=== PATIENT | female | born 1940 | race Caucasian/White ===

== ENCOUNTER 2017-03-02 10:40 | Emergency (ER) | payer OTHER ==
[2017-03-02 12:30] LABS: CALCIUM 9.2 mg/dL (8.5-10.1); CARBON DIOXIDE 30.4 mmol/L (21-32); CHLORIDE SERUM 108 mmol/L (98-107); CREATININE SERUM 0.9 mg/dL (0.6-1.0); GLUCOSE SERUM 113 mg/dL (74-106); POTASSIUM SERUM 4.6 mmol/L (3.5-5.1); SODIUM SERUM 145 mmol/L (136-145)
[2017-03-02 16:49] VITALS: BP 156/88
== END 2017-03-02 16:41 | disposition home or self-care (01) ==
LOC: ED 10:40
PROVIDERS: Emergency Medicine
DX: T78.3XXA Angioneurotic edema, initial encounter (principal); I10 Essential (primary) hypertension; R73.03 Prediabetes; E78.00 Pure hypercholesterolemia, unspecified; Z90.49 Acquired absence of other specified parts of digestive tract; Z87.820 Personal history of traumatic brain injury; Z79.899 Other long term (current) drug therapy
CPT/HCPCS: J2930; Q0163

== ENCOUNTER 2017-08-09 18:03 | Emergency (ER) | payer OTHER ==
[~2017-08-09] VITALS: Ht 152.4 cm; Wt 81.6 kg
[2017-08-09 18:47] VITALS: Ht 152.4 cm; Wt 81.6 kg
[2017-08-09 23:08] VITALS: BP 157/93
== END 2017-08-09 23:08 | disposition home or self-care (01) ==
LOC: ED 18:03
DX: S43.014A Anterior dislocation of right humerus, initial encounter (principal); I10 Essential (primary) hypertension; E11.9 Type 2 diabetes mellitus without complications; W19.XXXA Unspecified fall, initial encounter; Y93.89 Activity, other specified; Y92.89 Other specified places as the place of occurrence of the external cause; Y99.8 Other external cause status
CPT/HCPCS: J1170; J2704; J7050; Q0162